=== PATIENT | female | born 1990 | race Caucasian/White ===

== ENCOUNTER 2019-03-18 21:03 | Emergency (ER) | payer MEDICAID, OTHER ==
[2019-03-18 21:30] LABS: ADD MAN DIFF? NO
[2019-03-18 21:32] LABS: WHITE BLOOD COUNT 13.4 10^3/ul (4.8-10.8)
[2019-03-18 21:32] LABS: BASOPHILS % 0.3 % (0.0-2.0); EOSINOPHILS % 0.1 % (0.0-7.0); HEMATOCRIT 37.6 % (37.0-47.0); HEMOGLOBIN 12.5 g/dl (12.0-16.0); LYMPHOCYTES # 1.3 10^3/ul (0.8-2.9); LYMPHOCYTES % 9.4 % (15.0-51.0); MEAN CORPUSCULAR HEMOGLOBIN 29.3 pg (29.0-33.0); MEAN CORPUSCULAR HGB CONC 33.2 g/dl (32.0-37.0); MEAN CORPUSCULAR VOLUME 88.3 fl (82.0-101.0); MEAN PLATELET VOLUME 9.9 fl (7.4-10.4); MONOCYTE # 0.8 10^3/ul (0.3-0.9); NEUTROPHIL # 11.2 10^3/ul (1.6-7.5); NEUTROPHILS % 83.8 % (39.0-77.0); PLATELET COUNT 257 10^3/UL (140-415); RED BLOOD COUNT 4.26 10^6/ul (4.20-5.40); RED CELL DISTRIBUTION WIDTH 12.7 % (11.5-14.5)
[2019-03-18 21:36] LABS: ADD UMIC YES; UR ASCORBIC ACID NEGATIVE (NEGATIVE); UR BILIRUBIN (Dip) NEGATIVE (NEGATIVE); UR BLOOD (Dip) 2+ mg/dL (NEGATIVE); UR CLARITY SLIGHTLY CLOUDY (CLEAR); UR COLOR YELLOW (YELLOW); UR GLUCOSE (Dip) NEGATIVE (NEGATIVE); UR KETONES (Dip) 1+ mg/dL (NEGATIVE); UR LEUKOCYTE ESTERASE (Dip) NEGATIVE Leu/ul (NEGATIVE); UR NITRITE (Dip) NEGATIVE (NEGATIVE); UR RBC 18 /HPF (0-5); UR SPECIFIC GRAVITY (Dip) 1.019 (1.003-1.030); UR SQUAMOUS EPITHELIAL CELL FEW /HPF (FEW); UR TOTAL PROTEIN (Dip) 1+ mg/dl (NEGATIVE); UR UROBILINOGEN (Dip) NEGATIVE (NEGATIVE); UR WBC 4 /HPF (0-5)
[2019-03-18] MEDS: IBUPROFEN 600 MG TAB PO (21:41)
[2019-03-18] MEDS: SOD CHLORIDE 0.9% 1,000 ML IV (21:45)
[2019-03-18 21:54] LABS: ALANINE AMINOTRANSFERASE 17 IU/L (13-69); ALBUMIN 4.7 g/dl (3.3-4.9); ALKALINE PHOSPHATASE 55 IU/L (42-121); ANION GAP 11 (5-13); ASPARTATE AMINO TRANSFERASE 21 IU/L (15-46); BILIRUBIN,INDIRECT 0.5 mg/dl (0-1.1); BILIRUBIN,TOTAL 0.5 mg/dl (0.2-1.3); BLOOD UREA NITROGEN 6 mg/dl (7-20); CALCIUM 9.4 mg/dl (8.4-10.2); CARBON DIOXIDE 21 mmol/L (21-31); CHLORIDE 104 mmol/L (97-110); Estimated GFR > 60 mL/min (>60); GLUCOSE 113 mg/dl (70-220); LIPASE 34 U/L (23-300); POTASSIUM 3.7 mmol/L (3.5-5.1); SODIUM 136 mmol/L (135-144); TOTAL PROTEIN 8.2 g/dl (6.1-8.1)
[2019-03-18 21:55] LABS: ALBUMIN/GLOBULIN RATIO 1.34
[2019-03-18] MEDS: ACETAMINOPHEN 325 MG TAB PO (22:00)
[2019-03-19] MEDS: AMPICILLIN/SULB 3 GM/NS (PMX) 100 ML IVPB (00:25)
[2019-03-19] MEDS: DEXAMETHASONE 4 MG/ML 1 ML INJ IV (00:25)
[2019-03-19] MEDS: KETOROLAC 30 MG INJ IV (00:26)
== END 2019-03-19 01:26 | disposition home or self-care (01) ==
LOC: E/R 03-19 01:26
DX: J02.9 Acute pharyngitis, unspecified (principal)
CPT/HCPCS: 36415; 71045; 80053; 81001; 81025; 83605; 83690; 85025; 87880; 93005; 96374; 96375; 99285-25